=== PATIENT | female | born 1955 | race Caucasian/White ===

== ENCOUNTER 2021-06-19 10:03 | Day surgery (SDC) | payer OTHER ==
[2021-06-15 16:32] VITALS: BMI 24.5
[2021-06-19 11:50] VITALS: TEMP 97.1
[2021-06-19 11:51] VITALS: BP 131/72; PULSE 86
== END 2021-06-19 12:32 | disposition home or self-care (01) ==
LOC: FASU-ENDO 10:03
PROVIDERS: ATTEND Internal Medicine Gastroenterology
PROC: 0DB68ZX Excision of Stomach, Via Natural or Artificial Opening Endoscopic, Diagnostic (ICD-10-PCS; 2021-06-19)
PROC: 0DB98ZX Excision of Duodenum, Via Natural or Artificial Opening Endoscopic, Diagnostic (ICD-10-PCS; 2021-06-19)
PROC: 0DB68ZX Excision of Stomach, Via Natural or Artificial Opening Endoscopic, Diagnostic (ICD-10-PCS; 2021-06-19)
PROC: 0DJD8ZZ Inspection of Lower Intestinal Tract, Via Natural or Artificial Opening Endoscopic (ICD-10-PCS; principal; 2021-06-19 10:50)
DX: Z12.11 Encounter for screening for malignant neoplasm of colon (principal); K57.30 Diverticulosis of large intestine without perforation or abscess without bleeding; Z80.0 Family history of malignant neoplasm of digestive organs; K29.50 Unspecified chronic gastritis without bleeding; K31.7 Polyp of stomach and duodenum
CPT/HCPCS: 43239; 43251; G0105; 88305-TC; 88342-TC